=== PATIENT | female | born 1950 | race Caucasian/White ===

== ENCOUNTER 2019-03-09 13:44 | Inpatient (IN) | payer OTHER, MEDICARE ==
[~2019-03-09] VITALS: Ht 162.6 cm; Wt 84.4 kg
[~2019-03-09 13:44] MED LIST: ASPI-1153; FLUO-119 PO; GABA-529 PO; GUAI600T86 PO; NAPR-688 PO; PRAV20TA PO; RIZA10TA22 SL; SYN50 PO; [UNRECOGNIZED DRUG - CODE] PO
--- NOTE | 2019-03-09 13:57 | NUR ---
Placed in room 4. Placed on monitor and storage bin tender, blood pressure machine and pulse oximeter. To gown for exam. Side rails up. Report given to Lewis ESPINOSA.
[2019-03-09 13:59] VITALS: BP_SYST 172
--- NOTE | 2019-03-09 14:10 | NUR ---
Patient is awake, alert, and oriented x4. Patient reports chest pressure 4/10 since 1200 today. Patient deneis SOB, nausea and vomiting.
--- NOTE | 2019-03-09 14:15 | NUR ---
ER Dr. Lux at bedside examining patient.
[2019-03-09] MEDS ORDERED: GABA-531 PO (14:32)
[2019-03-09] MEDS ORDERED: PRO20 PO (14:32)
[2019-03-09] MEDS ORDERED: PRAV40TA PO (14:32)
--- NOTE | 2019-03-09 14:32 | NUR ---
Medication reconcilation completed based upon call to [facility] pharmacy which is the only source of medications per patient.
[2019-03-09 14:33] LABS: BASOPHILS % (AUTO) 0.9 % (0.0-2.0); EOSINOPHILS # (AUTO) 0.1 K/uL (0.0-0.4); HEMATOCRIT 42.9 % (36-48); HEMOGLOBIN 14.3 g/dL (12.0-16.0); LYMPHOCYTES # (AUTO) 1.6 K/uL (1.0-5.5); LYMPHOCYTES % (AUTO) 27.5 % (20.5-51.5); MEAN CORPUSCULAR HEMOGLOBIN 32 pg (27-31); MEAN CORPUSCULAR HGB CONC 33 % (32-36); MEAN CORPUSCULAR VOLUME 95 fL (79.0-98.0); MONOCYTES # (AUTO) 0.5 K/uL (0.0-1.0); MONOCYTES % (AUTO) 9.3 % (1.7-9.3); NEUTROPHILS # (AUTO) 3.5 K/uL (1.8-7.7); NEUTROPHILS % (AUTO) 60.3 % (40.0-70.0); PLATELET COUNT (AUTO) 299 K/uL (130-430); RED BLOOD CELL COUNT(AUTO) 4.54 MIL/uL (4.2-6.2); RED CELL DISTRIBUTION WIDTH 14.1 % (9.0-15.0); WHITE BLOOD COUNT (AUTO) 5.7 K/uL (4.8-10.8)
[2019-03-09 15:03] LABS: ALANINE AMINOTRANSFERASE 26 U/L (12-78); ALBUMIN 3.6 g/dL (3.4-4.8); ASPARTATE AMINOTRANSFERASE 19 U/L (10-37); CHLORIDE 102 mmol/L (98-107); CREATININE 0.86 mg/dL (0.55-1.30); GLUCOSE 81 mg/dL (70-99); POTASSIUM 4.2 mmol/L (3.5-5.1); SODIUM SERUM 138 mmol/L (136-145); TOTAL BILIRUBIN 0.4 mg/dL (0.0-1.0); UREA NITROGEN, BLOOD 19 mg/dL (8-21)
[2019-03-09 15:12] LABS: ANION GAP 10 (5-15)
[2019-03-09] MEDS ORDERED: NITROGLYCERIN 1 INCH (GM) OINT. TP ONE (16:00)
--- NOTE | 2019-03-09 16:32 | NUR ---
Patient will be admitted to [facility]. Admitted to Telemetry unit. Will go to room 106B. Belongings list completed. Summary report printed. Report will be given at bedside.
--- NOTE | 2019-03-09 16:42 | NUR ---
ADMISSION NOTE Received patient from ER via eduardo, received report from ZITA ESPINOSA. Patient admitted with diagnosis of CHEST PAIN. Patient oriented to hospital routine, call light, toileting and safety-patient verbalized understanding.
--- NOTE | 2019-03-09 16:56 | NUR ---
CONSULTATION PAGED REASON FOR CONSULTATION:CHEST PAIN R/O NH WAS CONSULT CALLED?Y PERSON WHO WAS NOTIFIED:EDDIE CONSULTING PHYSICIAN:AYE PRUITT DIRECTOR OF SLEEP SPECIALTY:CARDIO DIRECTOR OF SLEEP PHONE NUMBER:[phone] ORDERING PHYSICIAN:JESIKA MONROE
[2019-03-09 16:58] VITALS: BP_SYST 142
--- NOTE | 2019-03-09 17:00 | NUR ---
OPENING NOTE patient received resting in bed A&O x4, patient denies any acute distress or pain, vital signs are stable, breathing is even and unlabored on room air, educated patient on plan of care and call light system, will continue to monitor, safety precautions in place, call light within reach, boyfriend at bedside.
--- NOTE | 2019-03-09 19:01 | NUR ---
CLOSING NOTE PATIENT IS RESTING IN BED A&O X4, PATIENT DENIES ANY ACUTE DISTRESS OR PAIN AT THIS TIME, PATIENT ATE DINNER, ALL NEEDS WERE MET THROUGHOUT SHIFT, WILL ENDORSE REPORT TO ONCOMING NURSE, SAFETY PRECAUTIONS IN PLACE, CALL LIGHT WITHIN REACH.
--- NOTE | 2019-03-09 19:30 | NUR ---
Initial Notes Handoff report received from offgoing nurse at the bedside. Patient is awake and alert, resting comfortably in bed. at the bedside. No SOB, no acute distress, no complaints of pain or facial grimacing noted. IV site intact, dressing clean and dry, saline locked. Call light within reach. Will continue with plan of care.
[2019-03-09 20:00] VITALS: BP_SYST 120
--- NOTE | 2019-03-09 20:06 | NUR ---
DR LA AT THE BEDSIDE TO SEE THE PATIENT. MADE NEW ORDERS TO CONTINUE HOME MEDS ASPIRIN, PROZAC, GABAPENTIN, SYNTHROID, AND PROVASTATIN. ALSO GAVE ORDERS FOR MYLANTA 30ML Q4PRN FOR HEARTBURN. ORDERS NOTED AND READBACK VERIFIED.
[2019-03-09] MEDS ORDERED: MAG-AL HYDROX/SIMETH 30 ML UDC PO PRN (20:15)
[2019-03-09] MEDS: GABAPENTIN 300 MG CAPSULE PO SCH (20:38)
[2019-03-09] MEDS ORDERED: HYDROcodone/ACETAMIN 5-325 MG TAB (NORCO/ VICODIN) PO PRN (21:30)
[2019-03-09] MEDS: PANTOPRAZOLE SODIUM 40 MG TAB PO SCH (21:30)
[2019-03-09] MEDS ORDERED: ZOLPIDEM TARTRATE 5 MG TABLET PO PRN (21:30)
[2019-03-09] MEDS ORDERED: ACETAMINOPHEN 325 MG TABLET PO PRN (21:30)
--- NOTE | 2019-03-09 22:00 | NUR ---
Patient awake, resting in bed, speaking with , positive affect noted. No SOB, no acute distress, no complaints of pain. Refuses bed alarm at this time. States she is able to walk independently without assistance. Call light within reach. Encouraged patient to call for assistance.
[2019-03-09 23:43] VITALS: BP_SYST 118
--- NOTE | 2019-03-10 | NUR ---
Patient resting in bed, eyes closed. No SOB, no acute distress, breathing even and unlabored with visible chest rise and fall noted. Call light within reach.
--- NOTE | 2019-03-10 02:25 | NUR ---
Patient resting in bed, eyes closed. Visible chest rise and fall noted, breathing even and unlabored, no sob, no acute distress, no signs of pain or facial grimacing noted. Call light within reach.
--- NOTE | 2019-03-10 03:57 | NUR ---
Patient resting in bed, AAOx4. No SOB, no acute distress, no complaints of pain at this time. IV site intact, dressing clean and dry, saline locked. Bed is locked, in the lowest position, 2x side rails up. Call light within reach. Encouraged to call.
--- NOTE | 2019-03-10 06:52 | NUR ---
patient resting comfortably in bed, aaox4. no sob, no acute distress, no complaints of pain at this time. bed is locked, in the lowest position, 2x side rails up. call light within reach. fall and safety precautions maintained. all needs have been met at this time. will endorse care to oncoming dayshift nurse.
[2019-03-10] MEDS ORDERED: LEVOTHYROXINE SODIUM 0.05 MG TABLET PO SCH (07:00)
--- NOTE | 2019-03-10 08:05 | NUR ---
OPENING NOTE patient is resting in bed A&O x4, patient denies any acute distress or pain at this time, breathing is even and unlabored on room air, educated patient on plan of care and call light system, will continue to monitor, safety precautions in place, call light within reach.
[2019-03-10 08:13] VITALS: BP_SYST 103
[2019-03-10] MEDS: GABAPENTIN 300 MG CAPSULE PO SCH (08:34)
[2019-03-10] MEDS: PANTOPRAZOLE SODIUM 40 MG TAB PO SCH (08:35)
[2019-03-10] MEDS ORDERED: ATORVASTATIN 20 MG TABLET PO SCH (09:00)
[2019-03-10] MEDS ORDERED: FLUoxetine HCL 20 MG CAPSULE (PROzac) PO SCH (09:00)
[2019-03-10] MEDS ORDERED: ASPIRIN 81 MG TABLET(ECOTRIN) PO SCH (09:00)
--- NOTE | 2019-03-10 10:15 | NUR ---
NOTES patient is resting in bed reading a book, patient denies any acute distress or pain, breathing is even and unlabored on room air, boyfriend at bedside, will continue to monitor, safety precautions in place, call light within reach.
[2019-03-10 11:55] VITALS: BP_SYST 141
[2019-03-10 12:14] VITALS: BP_SYST 141
[2019-03-10] MEDS ORDERED: PRO40 PO (12:47)
--- NOTE | 2019-03-10 12:58 | NUR ---
D/C Patient Patient given medication reconciliation form and D/C instructions. Exit Care provided. Patient verbalized understanding. MD discussed with patient the results and treatment provided. Ambulatory with steady gait for discharge to home. Patient in stable condition, ID band removed. IV catheter removed, intact and dressing applied, no active bleeding. Rx of PROTONIX given. Patient educated on pain management. All belongings sent with patient.
== END 2019-03-10 13:02 | disposition home or self-care (01) | DRG 206 ==
LOC: SED 13:44 → STU 16:06
PROVIDERS: ADMIT Internal Medicine; ATTEND Internal Medicine
DX: M94.0 Chondrocostal junction syndrome [Tietze] (principal); E03.9 Hypothyroidism, unspecified; E78.5 Hyperlipidemia, unspecified; F32.9 Major depressive disorder, single episode, unspecified; G89.4 Chronic pain syndrome; I10 Essential (primary) hypertension; E78.00 Pure hypercholesterolemia, unspecified; M54.5 Low back pain; K21.9 Gastro-esophageal reflux disease without esophagitis; F41.9 Anxiety disorder, unspecified; Z87.891 Personal history of nicotine dependence; Z79.82 Long term (current) use of aspirin; Z79.899 Other long term (current) drug therapy
CPT/HCPCS: 36415; 71045; 80053; 84484; 85025; 93005; 93306; 99285; G0378